=== PATIENT | male | born 2000 | race Two or more races ===

== ENCOUNTER → 2024-06-14 | Outpatient (CLI) | payer MEDICAID, SELFPAY ==
--- NOTE | 2024-06-14 09:00 | XR_ITS ---
Examination: Attempted esophagram standard Upright PA chest single view Upright soft tissue lateral neck single view Fluoroscopy Exam date and time: 03/16/2024 0932 hours INDICATIONS: Special-needs patient with difficulty swallowing seizures TECHNIQUE AND FINDINGS: Upright PA chest mild prominence left ventricle Soft tissue lateral neck normal epiglottis Patient could not cooperate to swallow for the esophagram IMPRESSION: Patient could not cooperate to swallow for the esophagram Fluoroscopy 0.12 minutes 4 x-ray images
== END | disposition home or self-care (01) ==
PROVIDERS: PCP Family Medicine; Referring Provider Family Medicine; Visit Provider Family Medicine
DX: R13.12 Dysphagia, oropharyngeal phase (principal)
CPT/HCPCS: 74220; A4699